=== PATIENT | male | born 1995 | race Two or more races ===

== ENCOUNTER 2017-05-09 16:12 | Emergency (ER) | payer OTHER ==
[2017-05-09] MEDS ORDERED: KETOROLAC TROMETHAMINE 60 MG/2 ML SDV IM ONE (17:01)
[2017-05-09] MEDS ORDERED: CYCLOBENZAPRINE HCL 10 MG TABLET PO ONE (17:01)
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
[2017-05-09 17:24] VITALS: BP 128/59
== END 2017-05-09 17:23 | disposition home or self-care (01) ==
LOC: ER 16:12
DX: M54.5 Low back pain (principal); M25.569 Pain in unspecified knee; F17.200 Nicotine dependence, unspecified, uncomplicated
CPT/HCPCS: 99283; 96372; J1885